=== PATIENT | male | born 1945 | race Hispanic/Latino ===

== ENCOUNTER 2021-08-04 08:13 | Outpatient (CLI) | payer MEDICARE | END 2021-08-04 08:14 | disposition home or self-care (01) | LOC: CT 08:13 | PROVIDERS: ATTEND Internal Medicine Gastroenterology | DX: D50.9 Iron deficiency anemia, unspecified (principal) | CPT/HCPCS: 74178; 82565 ==

== ENCOUNTER 2021-10-23 12:59 | Outpatient (CLI) | payer MEDICARE | END 2021-10-23 13:00 | disposition home or self-care (01) | LOC: LABBT 12:59 | PROVIDERS: ATTEND Internal Medicine Gastroenterology | DX: Z20.822 Contact with and (suspected) exposure to COVID-19 (principal) | CPT/HCPCS: 87811 ==

== ENCOUNTER 2021-10-27 14:05 | Outpatient (CLI) | payer MEDICARE | END 2021-10-27 14:06 | disposition home or self-care (01) | LOC: RAD 14:05 | PROVIDERS: ATTEND Internal Medicine Gastroenterology | DX: D50.9 Iron deficiency anemia, unspecified (principal); R13.14 Dysphagia, pharyngoesophageal phase; K22.2 Esophageal obstruction | CPT/HCPCS: 71046; 74246 ==

== ENCOUNTER → 2021-10-31 | Day surgery (SDC) | payer MEDICARE | LOC: SDC 13:39 | PROVIDERS: ATTEND Internal Medicine Gastroenterology | DX: K22.2 Esophageal obstruction (principal) | CPT/HCPCS: 91010 ==

== ENCOUNTER 2021-11-04 10:32 | Outpatient (CLI) | payer MEDICARE | END 2021-11-04 10:33 | disposition home or self-care (01) | LOC: SCSMRI 10:32 | PROVIDERS: ATTEND Anesthesiology | DX: Z47.89 Encounter for other orthopedic aftercare (principal); M47.814 Spondylosis without myelopathy or radiculopathy, thoracic region; Z98.890 Other specified postprocedural states | CPT/HCPCS: 72146 ==

== ENCOUNTER 2022-07-28 14:58 | Inpatient (IN) | payer MEDICARE ==
[2022-07-28 15:38] LABS: #Monocytes 0.9 thou/uL (0.11-0.59); #Neutrophils 9.8 thou/uL (1.40-6.50); %Basophils 0.3 % (0.0-1.0); %Eosinophils 0.3 % (0.0-10.0); %Lymphocytes 8.5 % (21.0-51.0); %Monocytes 7.4 % (0.0-10.0); %Neutrophils 83.5 % (42.0-75.0); Mean Corpuscular HGB CONC 32.7 g/dL (32.0-36.0); Mean Corpuscular Hemoglobin 31.3 pg (27.0-31.0); Mean Corpuscular Volume 95.8 fl (78.0-98.0); Mean Platelet Volume 7.3 fL (7.4-10.4); Platelet Count 265 10x3/uL (130-400); RBC Distribution Width 13.6 % (11.5-14.5); Red Blood Cell (RBC) Count 3.85 mill/uL (4.70-6.10); White Blood Cell (WBC) Count 11.7 10x3/uL (4.8-10.8)
[2022-07-28 15:59] LABS: ALT (SGPT) 8 U/L (8-55); AST (SGOT) 12 U/L (5-34); Alkaline Phosphatase 71 U/L (40-110); Anion Gap 34 mmol/L (10-20); BUN (Urea Nitrogen) 85 mg/dL (8.4-25.7); Bilirubin, Total 0.3 mg/dL (0.2-1.2); Calc. Creatinine Clearance 0 mL/min (70-130); Calcium 9.6 mg/dL (7.8-10.44); Chloride 99 mmol/L (98-107); Estimated GFR 6; Globulin 2.1 g/dL (2.4-3.5); Glucose 145 mg/dL (83-110); Lipase 419 U/L (8-78); Protein, Total 6.1 g/dL (5.8-8.1); Sodium 134 mmol/L (136-145)
[2022-07-28 16:12] LABS: Carbon Dioxide 8 mmol/L (23-31); Potassium 6.6 mmol/L (3.5-5.1)
[2022-07-28] MEDS ORDERED: Vancomycin 1 GM/200 ML (FROZEN) BAG ONE (16:55)
[2022-07-28] MEDS ORDERED: Piperacillin/Tazobactam 3.375 GM VIAL ONE (16:55)
[2022-07-28 17:07] LABS: Bacteria/HPF None Seen HPF (None Seen); Bilirubin Negative (Negative); Blood, Urine 1+ (Negative); Clarity Clear (Clear); Glucose, Urine (Dipstick) Normal (Negative); Ketone, Urine 20 mg/dL (Negative); Leukocyte Negative Leu/uL (Negative); Nitrite Negative (Negative); Protein, Urine (Dipstick) 30 mg/dL (Neg-Trace); RBC/HPF 0-3 HPF (0-3); Squamous Epithelial None Seen HPF (0-3); Urobilinogen Normal mg/dL (Less than 2); WBC/HPF 0-3 HPF (0-3)
[2022-07-28 17:45] LABS: Analyzer IN Cardio ER; Base Excess -16.4 mEq/L (-2.0 to +3.0); Calcium, Ionized (venous) 1.11 mmol/L (1.16-1.32); Chloride (VBG) 98 mmol/L (98-106); Hemoglobin (Hb) 13.1 g/dL (12.6-17.4); Sodium 132.2 mmol/L (133-146); pH (venous) 7.23 (7.32-7.43)
[2022-07-28 17:46] LABS: Actual Bicarbonate (HCO3v) 9 mEq/L (22-28); Potassium (VBG) 6.44 mmol/L (3.70-5.30)
[2022-07-28] MEDS ORDERED: Pantoprazole 40 MG VIAL IVP SCH (18:07)
[2022-07-28] MEDS ORDERED: Calcium Gluconate 100 MG/ML 10 ML IVPB SCH (18:15)
[2022-07-28] MEDS ORDERED: Dextrose 50% Abboject 50 ML SYRINGE SLOW IVP PRN (18:19)
[2022-07-28] MEDS ORDERED: Dextrose 5% in Water 1,000 ML IV PRN (18:19)
[2022-07-28] MEDS ORDERED: CALCIUM GLUC 1 GM/NS 50 ML 1 GM in Premix Bag 1 BAG IVPB SCH (18:45)
[2022-07-28 19:10] LABS: Lactic Acid 4.1 mmol/L (0.5-2.2)
[2022-07-28 19:11] LABS: Phosphorus 7.1 mg/dL (2.3-4.7)
[2022-07-28 19:12] LABS: Anion Gap 28 mmol/L (10-20); BUN (Urea Nitrogen) 82 mg/dL (8.4-25.7); Calc. Creatinine Clearance 0 mL/min (70-130); Carbon Dioxide 10 mmol/L (23-31); Chloride 101 mmol/L (98-107); Estimated GFR 7; Glucose 136 mg/dL (83-110); Magnesium 2.1 mg/dL (1.6-2.6); Sodium 133 mmol/L (136-145)
[2022-07-28 19:20] LABS: Potassium 6.3 mmol/L (3.5-5.1)
[2022-07-28 19:37] LABS: Thyroid Stimulating Hormone 0.5463 uIU/mL (0.35-4.94)
[2022-07-28 20:55] VITALS: BMI 31.0
[2022-07-28] MEDS ORDERED: Vancomycin HCl 750 MG in Sodium Chloride 0.9% 250 ML 250 ML IVPB SCH (21:30)
[2022-07-28] MEDS: Sodium Chloride 0.9% 1,000 ML IV SCH (22:16)
[2022-07-28] MEDS: Heparin 5,000 UNITS/ML VIAL SC SCH (22:31)
[2022-07-28] MEDS: Piperacillin/Tazobactam 3.375 GM in Sodium Chloride 0.9% 100 ML IVPB SCH (22:38)
[2022-07-29 05:00] LABS: Lactic Acid 1.3 mmol/L (0.5-2.2)
[2022-07-29] MEDS ORDERED: Insulin Regular 300 UNITS/3 ML VIAL IVP SCH (08:00)
[2022-07-29] MEDS ORDERED: Dextrose 50% Abboject 50 ML SYRINGE SLOW IVP SCH (08:00)
[2022-07-29 08:51] LABS: #Eosinphils 0.1 thou/uL (0.0-0.7); #Lymphocytes 0.7 thou/uL (1.20-3.40); #Monocytes 0.6 thou/uL (0.11-0.59); #Neutrophils 6.3 thou/uL (1.40-6.50); %Basophils 0.3 % (0.0-1.0); %Eosinophils 1.2 % (0.0-10.0); %Lymphocytes 9.5 % (21.0-51.0); %Neutrophils 81.1 % (42.0-75.0); Hemoglobin 11.2 g/dL (14.0-18.0); Mean Corpuscular HGB CONC 32.3 g/dL (32.0-36.0); Mean Corpuscular Hemoglobin 30.3 pg (27.0-31.0); Mean Corpuscular Volume 93.8 fl (78.0-98.0); Mean Platelet Volume 7.6 fL (7.4-10.4); Platelet Count 233 10x3/uL (130-400); RBC Distribution Width 13.9 % (11.5-14.5); Red Blood Cell (RBC) Count 3.69 mill/uL (4.70-6.10); White Blood Cell (WBC) Count 7.8 10x3/uL (4.8-10.8)
[2022-07-29] MEDS ORDERED: Vancomycin 1 GM in Premix Bag 1 BAG IVPB SCH (09:00)
[2022-07-29 09:08] LABS: Anion Gap 22 mmol/L (10-20); BUN (Urea Nitrogen) 73 mg/dL (8.4-25.7); Calc. Creatinine Clearance 12 mL/min (70-130); Calcium 9.1 mg/dL (7.8-10.44); Carbon Dioxide 12 mmol/L (23-31); Chloride 108 mmol/L (98-107); Estimated GFR 8; Glucose 162 mg/dL (83-110); Potassium 5.5 mmol/L (3.5-5.1); Sodium 136 mmol/L (136-145)
[2022-07-29] MEDS: Heparin 5,000 UNITS/ML VIAL SC SCH ×3 (09:11→21:53)
[2022-07-29] MEDS: Piperacillin/Tazobactam 3.375 GM in Sodium Chloride 0.9% 100 ML IVPB SCH ×2 (09:11→21:53)
[2022-07-29] MEDS: Pantoprazole 40 MG VIAL IVP SCH (09:12)
[2022-07-29] MEDS: Sodium Chloride 0.9% 1,000 ML IV SCH ×2 (09:23→14:23)
[2022-07-29] MEDS ORDERED: Vancomycin Dose by Levels Sliding Scale (Wt 71-99) FS SCH (13:00)
[2022-07-29] MEDS: Sodium Bicarbonate 150 MEQ in Dextrose 5% in Water 1,000 ML IV SCH (14:35)
[2022-07-29 17:55] LABS: Anion Gap 16 mmol/L (10-20); BUN (Urea Nitrogen) 65 mg/dL (8.4-25.7); Calc. Creatinine Clearance 14 mL/min (70-130); Calcium 9.1 mg/dL (7.8-10.44); Carbon Dioxide 18 mmol/L (23-31); Chloride 109 mmol/L (98-107); Estimated GFR 9; Glucose 218 mg/dL (83-110); Potassium 4.1 mmol/L (3.5-5.1); Sodium 139 mmol/L (136-145)
[2022-07-29] MEDS ORDERED: Fioricet 325/50/40 mg Tablet PO PRN (22:03)
[2022-07-29 23:52] LABS: Vancomycin, Random 15.3 ug/mL (See Comment)
[2022-07-30] MEDS ORDERED: Vancomycin HCl 500 MG in Sodium Chloride 0.9% 100 ML IV SCH (00:30)
[2022-07-30] MEDS: Sodium Bicarbonate 150 MEQ in Dextrose 5% in Water 1,000 ML IV SCH ×2 (01:51→11:27)
[2022-07-30 04:28] LABS: #Eosinphils 0.1 thou/uL (0.0-0.7); #Lymphocytes 0.9 thou/uL (1.20-3.40); #Monocytes 0.6 thou/uL (0.11-0.59); #Neutrophils 3.8 thou/uL (1.40-6.50); %Basophils 0.2 % (0.0-1.0); %Eosinophils 1.4 % (0.0-10.0); %Lymphocytes 16.3 % (21.0-51.0); %Monocytes 10.5 % (0.0-10.0); %Neutrophils 71.6 % (42.0-75.0); Hemoglobin 10.1 g/dL (14.0-18.0); Mean Corpuscular HGB CONC 34.3 g/dL (32.0-36.0); Mean Corpuscular Hemoglobin 31.6 pg (27.0-31.0); Mean Platelet Volume 7.2 fL (7.4-10.4); Platelet Count 211 10x3/uL (130-400); RBC Distribution Width 13.6 % (11.5-14.5); White Blood Cell (WBC) Count 5.2 10x3/uL (4.8-10.8)
[2022-07-30 04:53] LABS: Anion Gap 15 mmol/L (10-20); BUN (Urea Nitrogen) 55 mg/dL (8.4-25.7); Calc. Creatinine Clearance 17 mL/min (70-130); Carbon Dioxide 23 mmol/L (23-31); Chloride 104 mmol/L (98-107); Estimated GFR 12; Glucose 200 mg/dL (83-110); Potassium 3.2 mmol/L (3.5-5.1); Sodium 139 mmol/L (136-145)
[2022-07-30] MEDS: Piperacillin/Tazobactam 3.375 GM in Sodium Chloride 0.9% 100 ML IVPB SCH ×2 (08:32→20:57)
[2022-07-30] MEDS: Heparin 5,000 UNITS/ML VIAL SC SCH ×3 (08:32→20:57)
[2022-07-30] MEDS: Pantoprazole 40 MG VIAL IVP SCH (08:33)
[2022-07-30] MEDS: HumaLOG 300 UNITS/3 ML VIAL SC PRN ×2 (11:27→18:01)
[2022-07-30] MEDS: Sodium Chloride 0.9% 1,000 ML IV SCH (16:00)
[2022-07-30] MEDS: HYDROcodone/Acetaminophen 5/325 mg Tablet PO PRN (21:36)
[2022-07-30] MEDS: Tamsulosin HCl 0.4 MG CAP PO SCH (21:36)
[2022-07-31] MEDS ORDERED: Vancomycin HCl 750 MG in Sodium Chloride 0.9% 250 ML 250 ML IVPB SCH (02:00)
[2022-07-31] MEDS: Sodium Chloride 0.9% 1,000 ML IV SCH ×3 (02:05→20:31)
[2022-07-31] MEDS: HYDROcodone/Acetaminophen 5/325 mg Tablet PO PRN ×3 (02:10→20:20)
[2022-07-31 05:37] LABS: #Eosinphils 0.2 thou/uL (0.0-0.7); #Monocytes 0.5 thou/uL (0.11-0.59); %Basophils 0.8 % (0.0-1.0); %Eosinophils 3.9 % (0.0-10.0); %Lymphocytes 17.2 % (21.0-51.0); %Monocytes 9.3 % (0.0-10.0); %Neutrophils 68.9 % (42.0-75.0); Hemoglobin 10.2 g/dL (14.0-18.0); Mean Corpuscular HGB CONC 34.6 g/dL (32.0-36.0); Mean Corpuscular Hemoglobin 32.3 pg (27.0-31.0); Mean Corpuscular Volume 93.2 fl (78.0-98.0); Mean Platelet Volume 7.4 fL (7.4-10.4); Platelet Count 223 10x3/uL (130-400); RBC Distribution Width 13.3 % (11.5-14.5); Red Blood Cell (RBC) Count 3.15 mill/uL (4.70-6.10); White Blood Cell (WBC) Count 5.9 10x3/uL (4.8-10.8)
[2022-07-31 06:11] LABS: Anion Gap 12 mmol/L (10-20); BUN (Urea Nitrogen) 34 mg/dL (8.4-25.7); Calc. Creatinine Clearance 28 mL/min (70-130); Calcium 8.9 mg/dL (7.8-10.44); Carbon Dioxide 28 mmol/L (23-31); Chloride 103 mmol/L (98-107); Estimated GFR 21; Glucose 148 mg/dL (83-110); Potassium 2.8 mmol/L (3.5-5.1); Sodium 140 mmol/L (136-145)
[2022-07-31] MEDS: Calcitriol 0.25 MCG CAP PO SCH (08:23)
[2022-07-31] MEDS: Piperacillin/Tazobactam 3.375 GM in Sodium Chloride 0.9% 100 ML IVPB SCH (08:24)
[2022-07-31] MEDS: Heparin 5,000 UNITS/ML VIAL SC SCH ×3 (08:24→20:20)
[2022-07-31] MEDS: HumaLOG 300 UNITS/3 ML VIAL SC PRN ×2 (11:43→18:07)
[2022-07-31] MEDS ORDERED: Potassium Chloride 20 MEQ TAB PO SCH (13:00)
[2022-07-31] MEDS ORDERED: Calcium Carbonate 500 MG ChewTAB PO PRN (20:03)
[2022-07-31] MEDS: Tamsulosin HCl 0.4 MG CAP PO SCH (20:20)
[2022-08-01 04:54] LABS: #Eosinphils 0.3 thou/uL (0.0-0.7); #Lymphocytes 1.2 thou/uL (1.20-3.40); #Monocytes 0.6 thou/uL (0.11-0.59); #Neutrophils 3.8 thou/uL (1.40-6.50); %Basophils 0.6 % (0.0-1.0); %Eosinophils 4.3 % (0.0-10.0); %Lymphocytes 20.9 % (21.0-51.0); %Monocytes 9.7 % (0.0-10.0); %Neutrophils 64.5 % (42.0-75.0); Mean Corpuscular HGB CONC 34.8 g/dL (32.0-36.0); Mean Corpuscular Hemoglobin 31.9 pg (27.0-31.0); Mean Corpuscular Volume 91.8 fl (78.0-98.0); Mean Platelet Volume 7.3 fL (7.4-10.4); Platelet Count 202 10x3/uL (130-400); RBC Distribution Width 13.1 % (11.5-14.5); Red Blood Cell (RBC) Count 3.13 mill/uL (4.70-6.10); White Blood Cell (WBC) Count 5.8 10x3/uL (4.8-10.8)
[2022-08-01 05:15] LABS: Anion Gap 13 mmol/L (10-20); BUN (Urea Nitrogen) 23 mg/dL (8.4-25.7); Calc. Creatinine Clearance 43 mL/min (70-130); Calcium 8.7 mg/dL (7.8-10.44); Carbon Dioxide 23 mmol/L (23-31); Chloride 105 mmol/L (98-107); Estimated GFR 35; Glucose 138 mg/dL (83-110); Potassium 3.2 mmol/L (3.5-5.1); Sodium 138 mmol/L (136-145)
[2022-08-01] MEDS: Sodium Chloride 0.9% 1,000 ML IV SCH ×2 (05:57→16:25)
[2022-08-01] MEDS ORDERED: Electrolyte Replacement Protocol 1 EACH FS SCH (06:04)
[2022-08-01] MEDS ORDERED: Potassium Chloride 20 MEQ TAB PO SCH (08:00)
[2022-08-01] MEDS: Calcitriol 0.25 MCG CAP PO SCH (08:44)
[2022-08-01] MEDS: Heparin 5,000 UNITS/ML VIAL SC SCH ×3 (08:44→22:12)
[2022-08-01] MEDS: HYDROcodone/Acetaminophen 5/325 mg Tablet PO PRN ×3 (08:51→22:10)
[2022-08-01] MEDS: Tamsulosin HCl 0.4 MG CAP PO SCH (22:12)
[2022-08-02] MEDS: Sodium Chloride 0.9% 1,000 ML IV SCH (04:31)
[2022-08-02] MEDS: HYDROcodone/Acetaminophen 5/325 mg Tablet PO PRN (04:40)
[2022-08-02 09:25] LABS: ALT (SGPT) Less than 7 U/L (8-55); AST (SGOT) 12 U/L (5-34); Albumin 3.3 g/dL (3.4-4.8); Alkaline Phosphatase 57 U/L (40-110); Anion Gap 10 mmol/L (10-20); BUN (Urea Nitrogen) 14 mg/dL (8.4-25.7); Bilirubin, Total 0.3 mg/dL (0.2-1.2); Calc. Creatinine Clearance 52 mL/min (70-130); Carbon Dioxide 25 mmol/L (23-31); Chloride 108 mmol/L (98-107); Estimated GFR 45; Globulin 2.2 g/dL (2.4-3.5); Glucose 123 mg/dL (83-110); Potassium 3.6 mmol/L (3.5-5.1); Protein, Total 5.5 g/dL (5.8-8.1); Sodium 139 mmol/L (136-145)
[2022-08-02] MEDS: Heparin 5,000 UNITS/ML VIAL SC SCH (10:10)
[2022-08-02] MEDS: Calcitriol 0.25 MCG CAP PO SCH (10:10)
[2022-08-02 12:12] VITALS: BP 176/82; TEMP 97.9
== END 2022-08-02 14:11 | disposition home or self-care (01) | DRG 683 ==
LOC: SUATTDRO 14:58 → ERS 14:58 → 2NO 17:57
PROVIDERS: ADMIT Family Medicine; ATTEND Internal Medicine
DX: N17.9 Acute kidney failure, unspecified (principal); E87.20 Acidosis, unspecified; I12.0 Hypertensive chronic kidney disease with stage 5 chronic kidney disease or end stage renal disease; Z66 Do not resuscitate; N18.5 Chronic kidney disease, stage 5; N13.30 Unspecified hydronephrosis; G25.81 Restless legs syndrome; E11.65 Type 2 diabetes mellitus with hyperglycemia; E87.5 Hyperkalemia; D63.1 Anemia in chronic kidney disease; N40.1 Benign prostatic hyperplasia with lower urinary tract symptoms; R33.8 Other retention of urine; E11.22 Type 2 diabetes mellitus with diabetic chronic kidney disease; E87.6 Hypokalemia; Z98.84 Bariatric surgery status; Z79.84 Long term (current) use of oral hypoglycemic drugs; Z79.82 Long term (current) use of aspirin; Z79.899 Other long term (current) drug therapy
CPT/HCPCS: 36415; 36416; 70450; 71045; 72125; 74176; 80048; 80053; 80202; 81003; 81015; 82306; 82550; 82607; 82805; 83036; 83605; 83690; 83735; 83880; 83970; 84100; 84145; 84425; 84443; 84484; 85025; 87040; 87086; 93005; 96361; 96365; 96367; C9113; J0613; J1644; J1815; J2543; J3370; J3370-JW; J3490; J7050; J7070; J7999

== ENCOUNTER 2022-08-17 13:54 | Outpatient (CLI) | payer MEDICARE | END 2022-08-17 13:55 | disposition home or self-care (01) | LOC: TBSIIMAG 13:54 | PROVIDERS: ATTEND Student in an Organized Health Care Education/Training Program | DX: S46.012D Strain of muscle(s) and tendon(s) of the rotator cuff of left shoulder, subsequent encounter (principal); M66.812 Spontaneous rupture of other tendons, left shoulder ==

== ENCOUNTER 2022-08-21 00:33 | Emergency (ER) | payer MEDICARE | END 2022-08-21 01:02 | disposition home or self-care (01) | LOC: ERS 00:33 | DX: T83.038A Leakage of other urinary catheter, initial encounter (principal); E11.9 Type 2 diabetes mellitus without complications; I10 Essential (primary) hypertension | CPT/HCPCS: 99283 ==

== ENCOUNTER 2022-11-20 12:34 | Inpatient (IN) | payer MEDICARE ==
[2022-11-20 13:08] LABS: #Basophils 0.1 thou/uL (0.0-0.2); #Eosinphils 0.1 thou/uL (0.0-0.7); #Monocytes 0.4 thou/uL (0.11-0.59); #Neutrophils 5.2 thou/uL (1.40-6.50); %Basophils 1.3 % (0.0-1.0); %Eosinophils 0.9 % (0.0-10.0); %Lymphocytes 14.3 % (21.0-51.0); %Monocytes 6.3 % (0.0-10.0); %Neutrophils 76.8 % (42.0-75.0); Hematocrit 33.5 % (42.0-52.0); Hemoglobin 10.9 g/dL (14.0-18.0); Mean Corpuscular HGB CONC 32.5 g/dL (32.0-36.0); Mean Corpuscular Hemoglobin 29.7 pg (27.0-31.0); Mean Corpuscular Volume 91.3 fl (78.0-98.0); Mean Platelet Volume 9.1 fL (7.4-10.4); Platelet Count 269 10x3/uL (130-400); RBC Distribution Width 13.9 % (11.5-14.5); Red Blood Cell (RBC) Count 3.67 mill/uL (4.70-6.10); White Blood Cell (WBC) Count 6.8 10x3/uL (4.8-10.8)
[2022-11-20 13:14] LABS: Platelet Count 269 10x3/uL (130-400)
[2022-11-20] MEDS ORDERED: CEFAZOLIN 2 GM VIAL ONE (13:24)
[2022-11-20 13:28] LABS: Fibrinogen 474 mg/dL (253-463)
[2022-11-20 13:29] LABS: INR-International Normal Ratio 1.1; PTT 30.2 sec (22.9-36.1); Prothrombin Time 14.7 sec (12.0-14.7)
[2022-11-20 13:30] LABS: D-Dimer Test 0.72 *mcg/mL (0.27-0.43)
[2022-11-20 13:31] LABS: ALT (SGPT) 11 U/L (8-55); AST (SGOT) 16 U/L (5-34); Albumin 4.1 g/dL (3.4-4.8); Alkaline Phosphatase 77 U/L (40-110); Anion Gap 13 mmol/L (10-20); BUN (Urea Nitrogen) 16 mg/dL (8.4-25.7); Bilirubin, Total 0.3 mg/dL (0.2-1.2); Calc. Creatinine Clearance 0 mL/min (70-130); Calcium 10.5 mg/dL (7.8-10.44); Carbon Dioxide 20 mmol/L (23-31); Chloride 104 mmol/L (98-107); Estimated GFR 41; Glucose 203 mg/dL (83-110); Potassium 4.6 mmol/L (3.5-5.1); Protein, Total 7.1 g/dL (5.8-8.1); Sodium 132 mmol/L (136-145)
[2022-11-20 15:21] LABS: Bacteria/HPF None Seen HPF (None Seen); Bilirubin Negative (Negative); Blood, Urine 3+ (Negative); CAUTI Indications for Culture Dysuria,urgency,freq; Clarity Clear (Clear); Glucose, Urine (Dipstick) Normal (Negative); Ketone, Urine Negative (Negative); Leukocyte 75 Leu/uL (Negative); Nitrite Negative (Negative); Protein, Urine (Dipstick) 20 mg/dL (Neg-Trace); Specific Gravity, Urine 1.005 (1.002-1.036); Squamous Epithelial 0-3 HPF (0-3); Urobilinogen Normal mg/dL (Less than 2)
[2022-11-20 15:24] LABS: Urine Culture Reflex No No
[2022-11-20] MEDS ORDERED: Dextrose 5% in Water 1,000 ML IV PRN (16:03)
[2022-11-20] MEDS ORDERED: HumaLOG 300 UNITS/3 ML VIAL SC PRN ×2 (16:03)
[2022-11-20] MEDS ORDERED: Dextrose 50% Abboject 50 ML SYRINGE SLOW IVP PRN (16:03)
[2022-11-20] MEDS ORDERED: Glucagon 1 MG/ML KIT IM PRN (16:03)
[2022-11-20] MEDS ORDERED: Ondansetron PF 4 MG/2 ML Vial IVP PRN (16:03)
[2022-11-20] MEDS: Lactated Ringer's 1,000 ML IV SCH (19:37)
[2022-11-20] MEDS ORDERED: VANCOMYCIN 1.75 GM/500 ML BAG 1.75 GM in Premix Bag 1 BAG IVPB SCH (20:15)
[2022-11-20] MEDS ORDERED: Vancomycin HCl 750 MG in Sodium Chloride 0.9% 250 ML 250 ML IVPB SCH (21:00)
[2022-11-20] MEDS: Cefepime 1 GM in Sodium Chloride 0.9% 100 ML IVPB SCH (21:42)
[2022-11-20] MEDS: HYDROcodone/Acetaminophen 7.5/325 mg Tablet PO PRN (21:43)
[2022-11-20] MEDS: Tamsulosin HCl 0.4 MG CAP PO SCH (21:43)
[2022-11-20] MEDS: Pioglitazone HCl 45 MG TAB PO SCH (22:02)
[2022-11-20 23:26] VITALS: BMI 33.0
[2022-11-21] MEDS: Lactated Ringer's 1,000 ML IV SCH ×3 (03:37→18:04)
[2022-11-21] MEDS: Acetaminophen 325 MG TAB PO PRN (03:37)
[2022-11-21] MEDS ORDERED: HYDROcodone/Acetaminophen 5/325 mg Tablet PO SCH (04:00)
[2022-11-21 06:19] LABS: #Basophils 0.1 thou/uL (0.0-0.2); #Eosinphils 0.2 thou/uL (0.0-0.7); #Monocytes 0.5 thou/uL (0.11-0.59); #Neutrophils 2.6 thou/uL (1.40-6.50); %Basophils 1.7 % (0.0-1.0); %Eosinophils 5.1 % (0.0-10.0); %Lymphocytes 28.6 % (21.0-51.0); %Monocytes 10.5 % (0.0-10.0); %Neutrophils 53.9 % (42.0-75.0); Hematocrit 29.3 % (42.0-52.0); Hemoglobin 9.2 g/dL (14.0-18.0); Mean Corpuscular HGB CONC 31.4 g/dL (32.0-36.0); Mean Corpuscular Hemoglobin 29.3 pg (27.0-31.0); Mean Corpuscular Volume 93.3 fl (78.0-98.0); Mean Platelet Volume 9.2 fL (7.4-10.4); Platelet Count 226 10x3/uL (130-400); RBC Distribution Width 14.3 % (11.5-14.5); Red Blood Cell (RBC) Count 3.14 mill/uL (4.70-6.10); White Blood Cell (WBC) Count 4.8 10x3/uL (4.8-10.8)
[2022-11-21 06:42] LABS: Anion Gap 8 mmol/L (10-20); BUN (Urea Nitrogen) 12 mg/dL (8.4-25.7); Calc. Creatinine Clearance 76 mL/min (70-130); Calcium 9.4 mg/dL (7.8-10.44); Carbon Dioxide 22 mmol/L (23-31); Chloride 113 mmol/L (98-107); Estimated GFR 68; Glucose 89 mg/dL (83-110); Potassium 4.3 mmol/L (3.5-5.1); Sodium 139 mmol/L (136-145)
[2022-11-21] MEDS ORDERED: Lisinopril 10 MG TAB PO SCH (09:00)
[2022-11-21] MEDS: Cefepime 1 GM in Sodium Chloride 0.9% 100 ML IVPB SCH (10:03)
[2022-11-21] MEDS: Aspirin Chewable 81 MG TAB PO SCH (10:03)
[2022-11-21] MEDS: Gabapentin 300 MG CAP PO SCH (10:03)
[2022-11-21] MEDS: HYDROcodone/Acetaminophen 7.5/325 mg Tablet PO PRN ×2 (13:15→21:43)
[2022-11-21] MEDS: cefTRIAXone\\ROCEPHIN 1 GM in Sodium Chloride 0.9% 100 ML IVPB SCH (17:56)
[2022-11-21] MEDS: Tamsulosin HCl 0.4 MG CAP PO SCH (21:06)
[2022-11-21] MEDS: Pioglitazone HCl 45 MG TAB PO SCH (21:06)
[2022-11-21] MEDS ORDERED: VANCOMYCIN 1.25 GM/250 ML BAG 1.25 GM in Premix Bag 1 BAG IVPB SCH (23:00)
[2022-11-22 05:02] LABS: #Basophils 0.1 thou/uL (0.0-0.2); #Eosinphils 0.4 thou/uL (0.0-0.7); #Monocytes 0.5 thou/uL (0.11-0.59); #Neutrophils 2.7 thou/uL (1.40-6.50); %Basophils 1.8 % (0.0-1.0); %Eosinophils 7.9 % (0.0-10.0); %Lymphocytes 28.5 % (21.0-51.0); %Monocytes 9.6 % (0.0-10.0); Hematocrit 28.7 % (42.0-52.0); Hemoglobin 9.4 g/dL (14.0-18.0); Mean Corpuscular HGB CONC 32.8 g/dL (32.0-36.0); Mean Corpuscular Hemoglobin 29.8 pg (27.0-31.0); Mean Corpuscular Volume 91.1 fl (78.0-98.0); Mean Platelet Volume 9.3 fL (7.4-10.4); Platelet Count 224 10x3/uL (130-400); RBC Distribution Width 14.1 % (11.5-14.5); Red Blood Cell (RBC) Count 3.15 mill/uL (4.70-6.10); White Blood Cell (WBC) Count 5.1 10x3/uL (4.8-10.8)
[2022-11-22 05:33] LABS: Anion Gap 10 mmol/L (10-20); BUN (Urea Nitrogen) 11 mg/dL (8.4-25.7); Calc. Creatinine Clearance 77 mL/min (70-130); Calcium 9.7 mg/dL (7.8-10.44); Carbon Dioxide 23 mmol/L (23-31); Chloride 109 mmol/L (98-107); Estimated GFR 69; Glucose 91 mg/dL (83-110); Magnesium 1.8 mg/dL (1.6-2.6); Sodium 138 mmol/L (136-145)
[2022-11-22] MEDS: Aspirin Chewable 81 MG TAB PO SCH (08:36)
[2022-11-22] MEDS: Gabapentin 300 MG CAP PO SCH (08:36)
[2022-11-22] MEDS ORDERED: Polyethylene Glycol 3350 17 GM Packet PO PRN (09:26)
[2022-11-22] MEDS ORDERED: Senokot S 8.6-50 MG TAB PO SCH (09:30)
[2022-11-22] MEDS: Lactated Ringer's 1,000 ML IV SCH ×2 (13:35→21:24)
[2022-11-22] MEDS ORDERED: Electrolyte Replacement Protocol 1 EACH FS SCH (15:30)
[2022-11-22] MEDS ORDERED: Magnesium 2 GM/50 ML(in water) 2 GM in Premix Bag 1 BAG IVPB SCH (15:45)
[2022-11-22] MEDS: cefTRIAXone\\ROCEPHIN 1 GM in Sodium Chloride 0.9% 100 ML IVPB SCH (15:52)
[2022-11-22] MEDS: HYDROcodone/Acetaminophen 7.5/325 mg Tablet PO PRN (18:14)
[2022-11-22] MEDS ORDERED: Tamsulosin HCl 0.4 MG CAP PO SCH (21:00)
[2022-11-22] MEDS: Senokot S 8.6-50 MG TAB PO SCH (21:19)
[2022-11-22] MEDS: Folic Acid 1 MG TAB PO SCH (21:19)
[2022-11-22] MEDS: Pioglitazone HCl 45 MG TAB PO SCH (21:19)
[2022-11-22] MEDS: Multivit, Therapeutic 1 TAB PO SCH (21:19)
[2022-11-22] MEDS: Tamsulosin HCl 0.4 MG CAP PO SCH (21:19)
[2022-11-22] MEDS: Cyanocobalamin (Vitamin B-12) 1,000 MCG TAB PO SCH (21:19)
[2022-11-23 04:46] LABS: #Basophils 0.1 thou/uL (0.0-0.2); #Eosinphils 0.2 thou/uL (0.0-0.7); #Monocytes 0.6 thou/uL (0.11-0.59); #Neutrophils 4.1 thou/uL (1.40-6.50); %Basophils 1.1 % (0.0-1.0); %Eosinophils 3.7 % (0.0-10.0); %Lymphocytes 19.5 % (21.0-51.0); %Monocytes 9.3 % (0.0-10.0); %Neutrophils 66.1 % (42.0-75.0); Hematocrit 31.3 % (42.0-52.0); Hemoglobin 10.1 g/dL (14.0-18.0); Mean Corpuscular HGB CONC 32.3 g/dL (32.0-36.0); Mean Corpuscular Hemoglobin 29.5 pg (27.0-31.0); Mean Corpuscular Volume 91.5 fl (78.0-98.0); Mean Platelet Volume 9.1 fL (7.4-10.4); Platelet Count 238 10x3/uL (130-400); RBC Distribution Width 14.1 % (11.5-14.5); Red Blood Cell (RBC) Count 3.42 mill/uL (4.70-6.10); White Blood Cell (WBC) Count 6.3 10x3/uL (4.8-10.8)
[2022-11-23 05:06] LABS: ALT (SGPT) 7 U/L (8-55); AST (SGOT) 12 U/L (5-34); Albumin 3.3 g/dL (3.4-4.8); Alkaline Phosphatase 60 U/L (40-110); Anion Gap 13 mmol/L (10-20); BUN (Urea Nitrogen) 13 mg/dL (8.4-25.7); Bilirubin, Total 0.2 mg/dL (0.2-1.2); CRP (Inflammatory) Less than 0.50 mg/dL (= or < 0.5); Calc. Creatinine Clearance 73 mL/min (70-130); Calcium 9.9 mg/dL (7.8-10.44); Carbon Dioxide 23 mmol/L (23-31); Chloride 107 mmol/L (98-107); Estimated GFR 64; Globulin 2.4 g/dL (2.4-3.5); Glucose 100 mg/dL (83-110); Magnesium 1.9 mg/dL (1.6-2.6); Potassium 4.3 mmol/L (3.5-5.1); Protein, Total 5.7 g/dL (5.8-8.1); Sodium 139 mmol/L (136-145)
[2022-11-23 05:07] LABS: Phosphorus 3.6 mg/dL (2.3-4.7)
[2022-11-23] MEDS ORDERED: Magnesium 2 GM/50 ML(in water) 2 GM in Premix Bag 1 BAG IVPB SCH (08:00)
[2022-11-23] MEDS: Gabapentin 300 MG CAP PO SCH (10:17)
[2022-11-23] MEDS: Aspirin Chewable 81 MG TAB PO SCH (10:17)
[2022-11-23] MEDS: Senokot S 8.6-50 MG TAB PO SCH ×2 (10:17→19:54)
[2022-11-23] MEDS: Lactated Ringer's 1,000 ML IV SCH ×2 (11:29→16:41)
[2022-11-23] MEDS: HYDROcodone/Acetaminophen 7.5/325 mg Tablet PO PRN ×2 (12:12→21:57)
[2022-11-23] MEDS ORDERED: Electrolyte Replacement Protocol FS PRN (14:30)
[2022-11-23] MEDS ORDERED: Polyethylene Glycol 3350 17 GM Packet PO SCH (15:30)
[2022-11-23] MEDS: cefTRIAXone\\ROCEPHIN 1 GM in Sodium Chloride 0.9% 100 ML IVPB SCH (16:41)
[2022-11-23] MEDS: Pioglitazone HCl 45 MG TAB PO SCH (19:54)
[2022-11-23] MEDS: Tamsulosin HCl 0.4 MG CAP PO SCH (19:54)
[2022-11-23] MEDS: Folic Acid 1 MG TAB PO SCH (19:55)
[2022-11-23] MEDS: Cyanocobalamin (Vitamin B-12) 1,000 MCG TAB PO SCH (19:55)
[2022-11-23] MEDS: Multivit, Therapeutic 1 TAB PO SCH (19:55)
[2022-11-24] MEDS: Lactated Ringer's 1,000 ML IV SCH ×2 (05:36→09:05)
[2022-11-24] MEDS: Gabapentin 300 MG CAP PO SCH (09:04)
[2022-11-24] MEDS: Senokot S 8.6-50 MG TAB PO SCH ×2 (09:04→20:44)
[2022-11-24] MEDS: Aspirin Chewable 81 MG TAB PO SCH (09:04)
[2022-11-24] MEDS: Polyethylene Glycol 3350 17 GM Packet PO SCH (09:04)
[2022-11-24] MEDS: Acetaminophen 325 MG TAB PO PRN ×2 (09:11→20:47)
[2022-11-24] MEDS: HYDROcodone/Acetaminophen 7.5/325 mg Tablet PO PRN (17:23)
[2022-11-24] MEDS: Multivit, Therapeutic 1 TAB PO SCH (20:44)
[2022-11-24] MEDS: Folic Acid 1 MG TAB PO SCH (20:44)
[2022-11-24] MEDS: Pioglitazone HCl 45 MG TAB PO SCH (20:44)
[2022-11-24] MEDS: Tamsulosin HCl 0.4 MG CAP PO SCH (20:44)
[2022-11-24] MEDS: Cyanocobalamin (Vitamin B-12) 1,000 MCG TAB PO SCH (20:44)
[2022-11-25] MEDS ORDERED: HYDROcodone/Acetaminophen 7.5/325 mg Tablet PO PRN (00:03)
[2022-11-25] MEDS: Gabapentin 300 MG CAP PO SCH (07:31)
[2022-11-25] MEDS: Senokot S 8.6-50 MG TAB PO SCH (07:31)
[2022-11-25] MEDS: Aspirin Chewable 81 MG TAB PO SCH (07:31)
[2022-11-25] MEDS: Polyethylene Glycol 3350 17 GM Packet PO SCH (07:32)
[2022-11-25 08:05] VITALS: BP 112/58; TEMP 98.3
== END 2022-11-25 10:55 | disposition home or self-care (01) | DRG 872 ==
LOC: ERS 12:34 → 2SW 18:05
PROVIDERS: ADMIT Hospitalist; ATTEND Internal Medicine
DX: A41.9 Sepsis, unspecified organism (principal); N39.0 Urinary tract infection, site not specified; E87.1 Hypo-osmolality and hyponatremia; N17.9 Acute kidney failure, unspecified; E87.20 Acidosis, unspecified; I95.9 Hypotension, unspecified; N40.0 Benign prostatic hyperplasia without lower urinary tract symptoms; K22.2 Esophageal obstruction; G89.4 Chronic pain syndrome; G25.81 Restless legs syndrome; R04.0 Epistaxis; E11.22 Type 2 diabetes mellitus with diabetic chronic kidney disease; I12.9 Hypertensive chronic kidney disease with stage 1 through stage 4 chronic kidney disease, or unspecified chronic kidney disease; N18.2 Chronic kidney disease, stage 2 (mild); D63.1 Anemia in chronic kidney disease; E83.42 Hypomagnesemia; R31.0 Gross hematuria; E86.0 Dehydration; I07.1 Rheumatic tricuspid insufficiency; E66.9 Obesity, unspecified; Z79.82 Long term (current) use of aspirin; Z79.899 Other long term (current) drug therapy; Z68.33 Body mass index [BMI] 33.0-33.9, adult; Z98.890 Other specified postprocedural states
CPT/HCPCS: 36415; 36416; 71045; 74176; 80048; 80053; 81001; 82533; 83605; 83735; 84100; 84145; 85025; 85049; 85300; 85362; 85379; 85384; 85610; 85730; 86140; 87040; 87086; 93005; 93306; 96365; J0692; J0696; J3370; J3475; J3490; J7120

== ENCOUNTER 2024-02-14 06:33 | Day surgery (SDC) | payer MEDICARE ==
[2024-02-11 11:06] VITALS: BMI 31.1
[2024-02-14] MEDS ORDERED: PROPOFOL 60 ML ONE (07:11)
[2024-02-14] MEDS ORDERED: ePHEDrine Sulfate 50 MG/10 ML VIAL ONE (07:12)
[2024-02-14] MEDS ORDERED: Lidocaine 2% PF 5 ML VIAL ONE (07:57)
== END 2024-02-14 09:35 | disposition home or self-care (01) ==
LOC: SDC 06:33
PROVIDERS: ATTEND Internal Medicine Gastroenterology
PROC: 0DJ08ZZ Inspection of Upper Intestinal Tract, Via Natural or Artificial Opening Endoscopic (ICD-10-PCS; principal; 2024-02-14)
DX: D50.9 Iron deficiency anemia, unspecified (principal); K59.09 Other constipation; I10 Essential (primary) hypertension; E11.40 Type 2 diabetes mellitus with diabetic neuropathy, unspecified; F32.A Depression, unspecified; F43.10 Post-traumatic stress disorder, unspecified; N19 Unspecified kidney failure; G89.29 Other chronic pain; Z98.84 Bariatric surgery status; Z98.890 Other specified postprocedural states; Z87.891 Personal history of nicotine dependence; Z98.41 Cataract extraction status, right eye; Z98.42 Cataract extraction status, left eye; Z79.84 Long term (current) use of oral hypoglycemic drugs; Z79.82 Long term (current) use of aspirin; Z79.899 Other long term (current) drug therapy
CPT/HCPCS: 43235; J2704